=== PATIENT | female | born 1970 | race Two or more races ===

== ENCOUNTER 2023-01-20 07:46 | Emergency (ER) | payer OTHER ==
[~2023-01-20] VITALS: Ht 154.9 cm; Wt 59.0 kg
[2023-01-20 08:13] VITALS: BP 141/97
--- NOTE | 2023-01-20 08:30 | NUR ---
"tripped and had my Right hand out to break fall- 5th finger/pinkie injury"
[2023-01-20] MEDS ORDERED: HYDR-4303 PO (09:19)
[2023-01-20] MEDS ORDERED: HYDROCODONE/APAP 5/325MG TABLET PO ONE (09:30)
--- NOTE | 2023-01-20 09:31 | NUR ---
FINGER SPLINT PLACED BY EMT
[2023-01-20] MEDS ORDERED: HYDROCODONE/APAP 5/325MG TABLET ONE (09:37)
--- NOTE | 2023-01-20 09:49 | NUR ---
Patient discharged to home in stable condition. Written and verbal after care instructions given. Patient verbalizes understanding of instruction.
== END 2023-01-20 09:49 | disposition home or self-care (01) ==
LOC: ER 07:58
DX: S62.626A Displaced fracture of middle phalanx of right little finger, initial encounter for closed fracture (principal); W01.0XXA Fall on same level from slipping, tripping and stumbling without subsequent striking against object, initial encounter; Y93.89 Activity, other specified; Y92.89 Other specified places as the place of occurrence of the external cause; Y99.8 Other external cause status
CPT/HCPCS: 73140-TC